=== PATIENT | male | born 1955 | race Caucasian/White ===

== ENCOUNTER 2020-02-29 12:21 | Emergency (ER) | payer OTHER ==
[~2020-02-29] VITALS: Wt 117.0 kg
[~2020-02-29 12:21] MED LIST: ALBUTEROL0.09 MG/A2 IH; ALPRAZOLAM0.5 M3 PO; ANTIVERT/2525 M1 PO; ATIVAN1 MG PO; MOBIC15 MG PO; VICODIN ES 7.51 EACH PO; XANAX1 MG PO; XANAX2 M1 PO
== END 2020-02-29 14:38 | disposition home or self-care (01) ==
LOC: ED 12:21
DX: M79.18 Myalgia, other site (principal); M79.661 Pain in right lower leg; R20.2 Paresthesia of skin; M79.89 Other specified soft tissue disorders; F32.9 Major depressive disorder, single episode, unspecified; F41.9 Anxiety disorder, unspecified; M19.90 Unspecified osteoarthritis, unspecified site; Z88.0 Allergy status to penicillin; Z79.899 Other long term (current) drug therapy; Z90.49 Acquired absence of other specified parts of digestive tract; Z98.890 Other specified postprocedural states; Z87.891 Personal history of nicotine dependence